=== PATIENT | female | born 1985 | race Two or more races ===

== ENCOUNTER 2022-08-05 08:54 | Emergency (ER) | payer OTHER ==
[~2022-08-05] VITALS: Ht 162.6 cm; Wt 49.0 kg
[2022-08-05 09:00] VITALS: BP 136/78
[2022-08-05] MEDS ORDERED: PREDNISONE 20MG TABLET PO STA (09:43)
[2022-08-05] MEDS ORDERED: ALBUTEROL (0.083%) 2.5MG/3ML NEB HHN STA (09:43)
[2022-08-05] MEDS ORDERED: P50 MT (11:20)
[2022-08-05] MEDS ORDERED: NEBU-270 MC (11:20)
[2022-08-05] MEDS ORDERED: ALBU05 NEB (11:20)
== END 2022-08-05 11:46 | disposition home or self-care (01) ==
LOC: ER 08:54
DX: J45.901 Unspecified asthma with (acute) exacerbation (principal); B34.9 Viral infection, unspecified
CPT/HCPCS: 71045; 94640; 99283; J7512; Z7610